=== PATIENT | female | born 1960 | race Caucasian/White ===

== ENCOUNTER 2017-02-03 18:32 | Emergency (ER) | payer BC ==
[~2017-02-03] VITALS: Ht 147.3 cm; Wt 66.6 kg
[~2017-02-03 18:32] MED LIST: DRV100 PO
[2017-02-03 18:34] VITALS: TEMP 37; Ht 147.3 cm; Wt 66.6 kg
[2017-02-03] MEDS ORDERED: PRMVC PV (18:57)
[2017-02-03] MEDS ORDERED: NAPR1TAB9 PO (18:57)
--- NOTE | 2017-02-03 19:24 | DIAGNOSTIC IMAGING REPORT ---
LEFT KNEE 3 VIEWS HISTORY: left knee pain, injury COMPARISON: None. FINDINGS: There is no fracture or dislocation. Soft tissues are unremarkable. No significant knee effusion. Mild osteoarthritis within the medial compartment. IMPRESSION: No fractures. Electronically signed by: Lyndon Messina M.D. 02/03/2017 7:22 PM Dictated Date/Time: 02/03/2017 7:21 PM
--- NOTE | 2017-02-03 20:03 | EMERGENCY ROOM VISIT NOTE ---
ED Visit Note First contact with patient: 18:41 CHIEF COMPLAINT: knee pain HISTORY OF PRESENT ILLNESS: This 56-year-old female patient presents to the emergency department a mandatory after sustaining an injury to the left knee just prior to arrival. The patient states that she stepped down off of a ledge and rolled the ankle, causing her to feel a popping sensation in the left knee. She now reports pain in her left knee with movement or weightbearing. She denies pain at rest. She denies any pain in the ankle or further injuries. She reports swelling in the knee. She rates her discomfort a 9/10 and has not taken any medication for the pain. She denies any previous knee injuries. She denies any numbness or weakness. REVIEW OF SYSTEMS: A 6 system review of systems was completed with positives and pertinent negatives listed in the HPI. ALLERGIES: Penicillins MEDICATIONS: Premarin PMH: No significant past medical history. SOCIAL HISTORY: The patient lives locally with family. PHYSICAL EXAM: Vital Signs: Reviewed Nurse's notes, vital signs stable. GENERAL : This is a 56-year-old female, no acute distress, but appears in pain, well- developed, well-nourished. MENTAL STATUS: Alert, oriented to person place and time, and cooperative. MUSCULOSKELETAL: The left knee is not swollen. There is no ecchymosis. There is no joint effusion present. The patient is tender along the superior aspect of the patella. There is no joint line tenderness. The patella does not subluxate. Range of motion is full. Strength of the quads and hamstrings is 5/5. Petra's is negative. Glaen's and Anterior Drawer tests are negative. There is no laxity with varus and valgus stressing. The foot and toes are warm and well-perfused. Dorsalis pedis pulse 2+. Sensation to pain and light touch is intact. Capillary refill less than 2 seconds. RADIOGRAPHIC FINDINGS: LEFT KNEE 3 VIEWS HISTORY: left knee pain, injury COMPARISON: None. FINDINGS: There is no fracture or dislocation. Soft tissues are unremarkable. No significant knee effusion. Mild osteoarthritis within the medial compartment. IMPRESSION: No fractures. EMERGENCY DEPARTMENT COURSE: I examined the patient. X-rays of the left knee were reviewed by myself and read by radiology and reveal no acute findings. The patient was placed in a knee immobilizer under my direction and the position was satisfactory. The patient was instructed on the use of crutches. She was given a home pack and short course of [place] for pain. The [place] prescription drug monitoring program was queried and no red flags were identified. She was instructed to follow-up with orthopedics for further evaluation. The patient did question why an MRI was not performed and I did explain that this was not indicated emergently. The patient verbalized her understanding of my assessment and treatment plan. The patient was discharged home in good condition. DIAGNOSIS: Left knee injury Current/Historical Medications Scheduled Estrogens, Conjugated (Premarin), 0.5 GM PV 2XWK Naproxen (Aleve), 440 MG PO PRN UD Scheduled PRN Hydrocodone/Acetaminophen 5MG/325MG ([place] 5MG/325MG), 1-2 TABLET PO Q4H PRN for Pain Allergies Coded Allergies: Penicillins (Unverified Allergy, Mild, 10/30/09) Vital Signs Date Time Temp Pulse Resp B/P Pulse Ox O2 Delivery O2 Flow Rate FiO2 02/03/17 20:21 82 16 146/88 98 02/03/17 18:34 37.0 99 18 146/80 96 Room Air Medications Administered Medications (Trade) Dose Ordered Sig/Sabina Route Start Time Stop Time Status Last Admin Dose Admin Acetaminophen/ Hydrocodone Bitart ([place] 5/325mg Home Pack) 1 homepack UD ONCE PO 02/03/17 20:15 02/03/17 20:16 DC 02/03/17 20:15 1 HOMEPACK Departure Information Impression Primary Impression: Left knee injury Dispostion Home / Self-Care Condition GOOD Prescriptions Hydrocodone/Acetaminophen 5MG/325MG ([place] 5MG/325MG) Tab 1-2 TABLET PO Q4H Y for Pain, #12 TAB For Initial Treatment Prov: Carie Carrington PA-C 02/03/17 Referrals Fide Atkins DO (PCP) Perry Magdaleno M.D. Patient Instructions My [facility] Additional Instructions You have been treated in the Emergency Department for Knee Pain. For pain control, you can use the following [id number] medicines (if >12 yo): - Regular strength (325mg/tab) Tylenol (acetaminophen) 2 tabs every 4-6 hours as needed. Do not exceed 12 tablets in a 24 hour period. Avoid taking more than 4 grams (4000 mg) of Tylenol per day. This includes any other sources of acetaminophen you may take on a regular basis. - Regular strength (200 mg/tab) Advil (ibuprofen) 1-2 tabs every 4-6 hours as needed. Do not exceed a dose of 3200 mg per day. If this is a recent injury (<24 hrs), ice can be applied to the area of pain for the first 3 days to help decrease pain and inflammation. Ice massages can be performed by freezing water in a paper cup, peeling back the cup to expose the ice and then massaging over the affected area. You have been provided the number for an Orthopaedic Surgeon. You should call this number as soon as possible to establish a follow-up visit from today's Emergency Department visit. Keep the knee brace in place until cleared by Orthopedics. Use the crutches you have been provided to keep weight off of the knee until weight bearing is tolerable. Return to the Emergency Department if your current symptoms worsen despite treatment course outlined above. Problem Qualifiers Primary Impression: Left knee injury Encounter type: initial encounter Qualified Codes: S89.92XA - Unspecified injury of left lower leg, initial encounter
[2017-02-03] MEDS ORDERED: HYDR-5688 PO (20:11)
[2017-02-03] MEDS ORDERED: NORCO 5/325MG HOME PACK PO ONE (20:15)
[2017-02-03 20:21] VITALS: BP 146/88; PULSE 82; O2SAT 98
== END 2017-02-03 20:22 | disposition home or self-care (01) ==
LOC: C.EDB 18:33 → C.EDD 20:22
DX: S89.92XA Unspecified injury of left lower leg, initial encounter (principal); X58.XXXA Exposure to other specified factors, initial encounter; Z88.0 Allergy status to penicillin

== ENCOUNTER → 2017-02-21 | Outpatient (CLI) | payer BC ==
[~2017-02-21] MED LIST changes: -DRV100 PO; +HYDR-5688 PO; +NAPR1TAB9 PO; +PRMVC PV
--- NOTE | 2017-02-21 14:26 | DIAGNOSTIC IMAGING REPORT ---
MRI LEFT KNEE NO CONTRAST CLINICAL HISTORY: LEFT KNEE PAIN COMPARISON STUDY: 02/03/2017 FINDINGS: Imaging was performed in sagittal, coronal, and axial planes. The quadriceps and patellar tendons appear intact. There is a small joint effusion. There are no areas of marrow edema to indicate occult fracture or bone bruise. There is a subchondral cyst at the level of the tibial spines. No tears of the medial meniscus are visualized. There is a tear involving the anterior horn the lateral meniscus. The medial collateral ligament appears intact. There is a tear involving the tibial insertion of the lateral collateral ligament. There are tears of both anterior and posterior cruciate ligaments. IMPRESSION: 1. Tears of the anterior and posterior crucial ligaments 2. Tear of the lateral collateral ligament 3. Tear of the anterior horn the lateral meniscus Electronically signed by: Isiah Parsons M.D. 02/21/2017 2:24 PM Dictated Date/Time: 02/21/2017 2:14 PM
== END | disposition home or self-care (01) ==
LOC: C.MRIBC 13:05
PROVIDERS: ATTEND Orthopaedic Surgery
DX: M25.562 Pain in left knee (principal); S83.512A Sprain of anterior cruciate ligament of left knee, initial encounter; S83.522A Sprain of posterior cruciate ligament of left knee, initial encounter; S83.422A Sprain of lateral collateral ligament of left knee, initial encounter; S83.282A Other tear of lateral meniscus, current injury, left knee, initial encounter; X58.XXXA Exposure to other specified factors, initial encounter